=== PATIENT | female | born 1955 | race African-American/Black ===

== ENCOUNTER 2023-10-20 09:31 | Inpatient (IN) | payer OTHER ==
[2023-10-20 10:35] VITALS: BMI 27.4
[2023-10-20] MEDS ORDERED: BUPRENORPHINE HCL 150 MCG, BUPRENORPHINE HCL 75 MCG BC ONE (11:19)
[2023-10-20] MEDS ORDERED: BISMUTH SUBSALICYLATE 524 MG/30 ML PO PRN (11:19)
[2023-10-20] MEDS ORDERED: BENZOCAINE/MENTHOL (CHLORASEPTIC ) LOZENGE MM PRN (11:19)
[2023-10-20] MEDS ORDERED: DICYCLOMINE HCL 10 MG CAPSULE PO PRN (11:19)
[2023-10-20] MEDS ORDERED: NALOXONE HCL (KLOXXADO) 8 MG SPRAY NS PRN (11:19)
[2023-10-20] MEDS ORDERED: NALOXONE HCL 0.4 MG/ML VIAL IM PRN (11:19)
[2023-10-20] MEDS ORDERED: MAG HYDROX/AL HYDROX/SIMETH 30 ML UNIT-DOSE CUP PO PRN (11:19)
[2023-10-20] MEDS ORDERED: BENZONATATE 200 MG CAPSULE PO PRN (11:19)
[2023-10-20] MEDS ORDERED: guaiFENesin 600 MG TABLET.ER (FP) PO PRN (11:19)
[2023-10-20] MEDS ORDERED: IBUPROFEN 400 MG TABLET (FP) PO PRN (11:19)
[2023-10-20] MEDS ORDERED: IBUPROFEN 600 MG TABLET (FP) PO PRN (11:19)
[2023-10-20] MEDS ORDERED: MAGNESIUM HYDROX 2400MG/30ML ORAL SUSPENSION 30 ML CUP PO PRN (11:19)
[2023-10-20] MEDS ORDERED: LOPERAMIDE HCL 2 MG CAPSULE PO PRN (11:19)
[2023-10-20] MEDS ORDERED: BUPRENORPHINE HCL 150 MCG, BUPRENORPHINE HCL 75 MCG BC PRN (11:19)
[2023-10-20] MEDS ORDERED: POLYETHYLENE GLYCOL (HEALTHYLAX) 3350 17 GM PACKET PO PRN (11:19)
[2023-10-20] MEDS ORDERED: BUPRENORPHINE HCL 150 MCG FILM BC ONE (11:54)
[2023-10-20] MEDS ORDERED: BUPRENORPHINE HCL 75 MCG FILM BC ONE (11:55)
[2023-10-20] MEDS ORDERED: cloNIDine HCL 0.1 MG TABLET PO ONE (12:15)
[2023-10-20] MEDS: diazePAM 5 MG TABLET PO PRN ×2 (15:13→21:42)
[2023-10-20] MEDS: MELATONIN 5 MG TABLETS PO SCH (21:38)
[2023-10-20] MEDS: THIAMINE HCL 100 MG TABLET (FP) PO SCH (21:38)
[2023-10-20] MEDS: ACETAMINOPHEN 325 MG TABLET (FP) PO PRN (21:58)
[2023-10-21] MEDS ORDERED: BUPRENORPHINE HCL 150 MCG, BUPRENORPHINE HCL 75 MCG BC PRN
[2023-10-21] MEDS: ACETAMINOPHEN 325 MG TABLET (FP) PO PRN (06:18)
[2023-10-21] MEDS: BUPRENORPHINE HCL 150 MCG, BUPRENORPHINE HCL 75 MCG BC SCH ×2 (06:19→17:39)
[2023-10-21] MEDS ORDERED: PATIENT'S OWN MEDICATION (NON-FORMULARY) (Omeprazole/Sodium Bicarbonate [Omeprazole-Bicarb PO SCH (10:00)
[2023-10-21] MEDS ORDERED: SENNOSIDES 8.6MG TABLET (FP) PO SCH (10:00)
[2023-10-21 10:13] LABS: HEMATOCRIT 39.7 % (32.4-45.2); HEMOGLOBIN 12.3 GM/dL (10.7-15.3); MCH 26.6 pg (25.7-33.7); MEAN CELL VOLUME 85.9 fl (80-96); MEAN PLT VOLUME 8.4 fl (7.5-11.1); PLATELET COUNT 318 10^3/uL (134-434); RBC 4.62 M/mm3 (3.60-5.2); RDW 13.3 % (11.6-15.6); WHITE BLOOD COUNT 3.7 K/mm3 (4.0-10.0)
[2023-10-21 10:19] LABS: POTASSIUM 3.6 mmol/L (3.5-5.1)
[2023-10-21 10:24] LABS: ALBUMIN 3.4 g/dl (3.4-5.0); CALCIUM 9.2 mg/dL (8.5-10.1)
[2023-10-21 10:25] LABS: BLOOD UREA NITROGEN 16.1 mg/dL (7-18)
[2023-10-21 10:29] LABS: BILIRUBIN,TOTAL 1.7 mg/dL (0.2-1); TOT PROT 7.5 g/dl (6.4-8.2)
[2023-10-21] MEDS: NIFEdipine E.R. 90 MG TABLET PO SCH (10:38)
[2023-10-21] MEDS: cloNIDine HCL 0.1 MG TABLET PO SCH (10:39)
[2023-10-21] MEDS: PRENATAL VITAMINS W/ FOLIC ACID TABLET (FP) PO SCH (10:39)
[2023-10-21] MEDS: hydrOXYzine PAMOATE 25 MG CAPSULE (FP) PO PRN (10:40)
[2023-10-21] MEDS: CITALOPRAM HYDROBROMIDE 10 MG TABLET PO SCH (10:55)
[2023-10-21] MEDS: PANTOPRAZOLE 40 MG TABLET PO SCH (14:57)
[2023-10-21] MEDS: diazePAM 5 MG TABLET PO PRN ×2 (18:19→23:35)
[2023-10-21] MEDS: MELATONIN 5 MG TABLETS PO SCH (22:37)
[2023-10-21] MEDS: THIAMINE HCL 100 MG TABLET (FP) PO SCH (22:37)
[2023-10-22] MEDS ORDERED: BUPRENORPHINE HCL 450 MCG FILM BC PRN
[2023-10-22] MEDS: BUPRENORPHINE HCL 450 MCG FILM BC SCH ×2 (05:49→17:19)
[2023-10-22] MEDS: ACETAMINOPHEN 325 MG TABLET (FP) PO PRN (06:31)
[2023-10-22] MEDS: cloNIDine HCL 0.1 MG TABLET PO SCH (10:29)
[2023-10-22] MEDS: PRENATAL VITAMINS W/ FOLIC ACID TABLET (FP) PO SCH (10:29)
[2023-10-22] MEDS: PANTOPRAZOLE 40 MG TABLET PO SCH (10:30)
[2023-10-22] MEDS: CITALOPRAM HYDROBROMIDE 10 MG TABLET PO SCH (10:30)
[2023-10-22] MEDS: NIFEdipine E.R. 90 MG TABLET PO SCH (10:30)
[2023-10-22] MEDS: SENNOSIDES 8.6MG TABLET (FP) PO SCH (10:48)
[2023-10-22] MEDS ORDERED: ONDANSETRON *ODT* 4 MG TABLET SL ONE (14:00)
[2023-10-22] MEDS ORDERED: diazePAM 5 MG TABLET PO PRN (14:07)
[2023-10-22] MEDS ORDERED: ACETAMINOPHEN 325 MG TABLET (FP) PO ONE (21:42)
[2023-10-22] MEDS: cloNIDine HCL 0.1 MG TABLET PO PRN (21:55)
[2023-10-22] MEDS: THIAMINE HCL 100 MG TABLET (FP) PO SCH (22:12)
[2023-10-22] MEDS: MELATONIN 5 MG TABLETS PO SCH (22:12)
[2023-10-23] MEDS: BUPRENORPHINE/NALOXONE 4 MG/1 MG FILM PACKET SL SCH ×2 (06:44→17:46)
[2023-10-23] MEDS ORDERED: diazePAM 5 MG TABLET PO PRN (09:43)
[2023-10-23] MEDS: PRENATAL VITAMINS W/ FOLIC ACID TABLET (FP) PO SCH (10:22)
[2023-10-23] MEDS: PANTOPRAZOLE 40 MG TABLET PO SCH (10:22)
[2023-10-23] MEDS: cloNIDine HCL 0.1 MG TABLET PO SCH (10:23)
[2023-10-23] MEDS: CITALOPRAM HYDROBROMIDE 10 MG TABLET PO SCH (10:23)
[2023-10-23] MEDS: NIFEdipine E.R. 90 MG TABLET PO SCH (10:23)
[2023-10-23] MEDS: SENNOSIDES 8.6MG TABLET (FP) PO SCH (10:27)
[2023-10-23] MEDS: cloNIDine HCL 0.1 MG TABLET PO PRN (13:02)
[2023-10-23] MEDS: HYDROCHLOROTHIAZIDE 12.5 MG CAPSULE (FP) PO SCH (14:53)
[2023-10-23] MEDS: ONDANSETRON *ODT* 4 MG TABLET SL PRN (18:42)
[2023-10-23] MEDS: MELATONIN 5 MG TABLETS PO SCH (22:00)
[2023-10-23] MEDS: THIAMINE HCL 100 MG TABLET (FP) PO SCH (22:00)
[2023-10-23] MEDS: hydrOXYzine PAMOATE 25 MG CAPSULE (FP) PO PRN (22:09)
[2023-10-24] MEDS: ONDANSETRON *ODT* 4 MG TABLET SL PRN (01:33)
[2023-10-24] MEDS ORDERED: diazePAM 5 MG TABLET PO ONE (02:18)
[2023-10-24] MEDS: SIMETHICONE 80 MG TAB.CHEW (FP) PO PRN ×2 (02:29→08:27)
[2023-10-24] MEDS ORDERED: BUPRENORPHINE/NALOXONE 8 MG/2 MG FILM PACKET SL ONE ×2 (06:00)
[2023-10-24] MEDS: PRENATAL VITAMINS W/ FOLIC ACID TABLET (FP) PO SCH (10:44)
[2023-10-24] MEDS: HYDROCHLOROTHIAZIDE 12.5 MG CAPSULE (FP) PO SCH (10:44)
[2023-10-24] MEDS: SENNOSIDES 8.6MG TABLET (FP) PO SCH (10:45)
[2023-10-24] MEDS: cloNIDine HCL 0.1 MG TABLET PO SCH (10:45)
[2023-10-24] MEDS: NIFEdipine E.R. 90 MG TABLET PO SCH (10:45)
[2023-10-24] MEDS: PANTOPRAZOLE 40 MG TABLET PO SCH (10:45)
[2023-10-24] MEDS: CITALOPRAM HYDROBROMIDE 10 MG TABLET PO SCH (10:45)
[2023-10-24] MEDS: ACETAMINOPHEN 325 MG TABLET (FP) PO PRN ×2 (10:53→21:58)
[2023-10-24] MEDS ORDERED: LACTULOSE 20 GM/30 ML UDC (FOR ORAL USE ONLY) PO PRN (11:28)
[2023-10-24] MEDS: DOCUSATE SODIUM 100 MG CAPSULE (FP) PO SCH ×2 (13:29→21:58)
[2023-10-24] MEDS ORDERED: BISACODYL 10 MG SUPP.RECT PR ONE (18:00)
[2023-10-24] MEDS ORDERED: LISINOPRIL 10 MG TABLET PO ONE (21:36)
[2023-10-24] MEDS: MELATONIN 5 MG TABLETS PO SCH (21:57)
[2023-10-24] MEDS: THIAMINE HCL 100 MG TABLET (FP) PO SCH (21:58)
[2023-10-24] MEDS: hydrOXYzine PAMOATE 25 MG CAPSULE (FP) PO PRN (21:58)
[2023-10-25] MEDS: DOCUSATE SODIUM 100 MG CAPSULE (FP) PO SCH ×2 (06:28→14:32)
[2023-10-25 09:20] VITALS: TEMP 97.7
[2023-10-25] MEDS ORDERED: BUPRENORPHINE/NALOXONE 8 MG/2 MG FILM PACKET SL ONE ×2 (10:30→11:00)
[2023-10-25] MEDS: NIFEdipine E.R. 90 MG TABLET PO SCH (10:35)
[2023-10-25] MEDS: SENNOSIDES 8.6MG TABLET (FP) PO SCH (10:35)
[2023-10-25] MEDS: PRENATAL VITAMINS W/ FOLIC ACID TABLET (FP) PO SCH (10:35)
[2023-10-25] MEDS: PANTOPRAZOLE 40 MG TABLET PO SCH (10:35)
[2023-10-25] MEDS: cloNIDine HCL 0.1 MG TABLET PO SCH (10:35)
[2023-10-25] MEDS: HYDROCHLOROTHIAZIDE 12.5 MG CAPSULE (FP) PO SCH (10:35)
[2023-10-25] MEDS: CITALOPRAM HYDROBROMIDE 10 MG TABLET PO SCH ×2 (10:35)
[2023-10-25 12:59] VITALS: BP 125/77; PULSE 95; RESP 18
== END 2023-10-25 02:51 | disposition home or self-care (01) | DRG 896 ==
LOC: YASAS 09:31 → Y6N 12:27
PROVIDERS: ADMIT Allergy & Immunology; ATTEND Surgery
PROC: HZ2ZZZZ Detoxification Services for Substance Abuse Treatment (ICD-10-PCS; principal; 2023-10-20)
DX: F11.23 Opioid dependence with withdrawal (principal); U07.1 COVID-19; F13.20 Sedative, hypnotic or anxiolytic dependence, uncomplicated; F19.282 Other psychoactive substance dependence with psychoactive substance-induced sleep disorder; F19.24 Other psychoactive substance dependence with psychoactive substance-induced mood disorder; F41.9 Anxiety disorder, unspecified; F32.9 Major depressive disorder, single episode, unspecified; E78.5 Hyperlipidemia, unspecified; I12.9 Hypertensive chronic kidney disease with stage 1 through stage 4 chronic kidney disease, or unspecified chronic kidney disease; N18.30 Chronic kidney disease, stage 3 unspecified; K21.9 Gastro-esophageal reflux disease without esophagitis; K59.01 Slow transit constipation; Z88.8 Allergy status to other drugs, medicaments and biological substances
CPT/HCPCS: 36415; 80053; 80307; 82247; 85027; 86780; 87635; 93005; 93010; Q0162